=== PATIENT | male | born 1985 | race Caucasian/White ===

== ENCOUNTER 2017-06-18 19:38 | Emergency (ER) | payer OTHER ==
[~2017-06-18] VITALS: Ht 177.8 cm; Wt 68.0 kg
[~2017-06-18 19:38] MED LIST: ACEASPCAF PO; ALBU90OI INH; AMOX500 PO; CAFFERGOT; CALPRATL TP; CEPH500 PO; CRUTCH2 USE; DIVA250EC; DOXY100 PO; ERYT.5TO OD; HYDACE25S PR; HYDACE5 PO; IBUP600 PO; IBUP800 PO; METO25ER PO; NAPR500 PO; OLAN10 PO; OLAN5 PO; OMEP20ER PO; PRED20 PO; RXCYCL10 PO; RXTRAM50 PO; SERT100; SERT100 PO; SULTRIDS PO; SUMA25; SUMA25 PO; TRAM50 PO; TRAZ100 PO; TRAZ50 PO; [UNRECOGNIZED DRUG - REMARK]; [UNRECOGNIZED DRUG - REMARK]
[2017-06-18] MEDS ORDERED: Mobic15 MG PO (21:20)
== END 2017-06-18 21:24 ==
LOC: ER 19:38
DX: M79.602 Pain in left arm (principal); F31.9 Bipolar disorder, unspecified; F90.9 Attention-deficit hyperactivity disorder, unspecified type; I10 Essential (primary) hypertension; F43.10 Post-traumatic stress disorder, unspecified; G40.909 Epilepsy, unspecified, not intractable, without status epilepticus; F20.9 Schizophrenia, unspecified; F17.210 Nicotine dependence, cigarettes, uncomplicated
CPT/HCPCS: 99282

== ENCOUNTER 2018-07-25 16:07 | Emergency (ER) | payer OTHER ==
[~2018-07-25] VITALS: Ht 175.3 cm; Wt 61.2 kg
[~2018-07-25 16:07] MED LIST changes: +Mobic15 MG PO
== END 2018-07-25 16:55 | disposition home or self-care (01) ==
LOC: ER 16:07
DX: L23.7 Allergic contact dermatitis due to plants, except food (principal); Z79.899 Other long term (current) drug therapy; I10 Essential (primary) hypertension; F17.210 Nicotine dependence, cigarettes, uncomplicated
CPT/HCPCS: 96372; 99283-25; J2920; J3301